=== PATIENT | female | born 1990 | race Caucasian/White ===

== ENCOUNTER 2021-01-10 23:02 | Emergency (ER) | payer BC ==
[~2021-01-10] VITALS: Ht 170.2 cm; Wt 72.6 kg
[2021-01-10 23:53] LABS: *URINE HCG, QUAL NEGATIVE (NEGATIVE)
[2021-01-11 00:19] LABS: BASOPHILS % (AUTO) 0.7 % (0.0-2.0); EOSINOPHILS # (AUTO) 0.1 K/uL (0.0-0.7); EOSINOPHILS % (AUTO) 1.6 % (0.0-7.0); HEMATOCRIT 39.6 % (31.2-41.9); HEMOGLOBIN 13.3 g/dL (10.9-14.3); LYMPHOCYTES # (AUTO) 2.1 K/uL (20.0-40.0); LYMPHOCYTES % (AUTO) 46.7 % (20.5-51.5); MEAN CORPUSCULAR HEMOGLOBIN 31.2 uug (24.7-32.8); MEAN CORPUSCULAR HGB CONC 34 g/dL (32.3-35.6); MEAN CORPUSCULAR VOLUME 93.1 fL (75.5-95.3); MONOCYTES # (AUTO) 0.4 K/uL (2.0-10.0); MONOCYTES % (AUTO) 8.7 % (0.0-11.0); NEUTROPHILS # (AUTO) 1.9 K/uL (1.8-8.9); NEUTROPHILS % (AUTO) 42.3 % (38.5-71.5); PLATELET COUNT (AUTO) 201 K/uL (179-408); RED BLOOD CELL COUNT(AUTO) 4.25 MIL/uL (3.63-4.92); WHITE BLOOD COUNT (AUTO) 4.4 K/uL (3.8-11.8)
[2021-01-11 00:40] LABS: BILIRUBIN,DIRECT 0.5 mg/dL (0.0-0.2); BILIRUBIN,TOTAL 0.3 mg/dL (0.2-1.0); CREATININE 0.8 mg/dL (0.6-1.3); TOTAL PROTEIN, SERUM 7.4 g/dL (6.4-8.2)
--- NOTE | 2021-01-11 02:21 | NUR ---
Patient discharged to home in stable condition. Written and verbal after care instructions given. Patient verbalizes understanding of instructions. Stressed follow up or return to ER for worsening s/s. Blood drawn for repeat troponin. ok to ar home after blood draw per Dr. Serrano.
[2021-01-11 02:22] VITALS: BP 110/62
== END 2021-01-11 02:22 | disposition home or self-care (01) ==
LOC: ER 23:05
DX: R07.9 Chest pain, unspecified (principal); R06.02 Shortness of breath; R00.1 Bradycardia, unspecified; J98.11 Atelectasis
CPT/HCPCS: 36415; 70030-TC; 71045; 84703; 85025; 85730; 93005

== ENCOUNTER 2021-07-13 23:25 | Emergency (ER) | payer BC ==
[~2021-07-13] VITALS: Ht 170.2 cm; Wt 73.0 kg
--- NOTE | 2021-07-13 23:38 | NUR ---
PT AMBULATED TO ER C/O RLQ ABDOMINAL PAIN STARTED THIS AM BUT GOT WORSE 30 MINS [employer]. A/O X4, NO SOB OR LABORED BREATHING, AFEBRILE. DR. AYALA AT BEDSIDE, MSE IN PROGRESS.
[2021-07-14] MEDS ORDERED: KETOROLAC TROMETHAMINE 15 MG INJ IVP ONE
[2021-07-14] MEDS ORDERED: IV NORMAL SALINE 1000 ML BAG IV ONE
[2021-07-14] MEDS ORDERED: HYDROMORPHONE 1 MG/1 ML DISP.SYRIN IV ONE
[2021-07-14 00:02] LABS: *BILIRUBIN,URIN NEGATIVE (NEGATIVE); *BLOOD, URINE 2+ (NEGATIVE); *COLOR,URINE YELLOW (YELLOW); *KETONES,URINE NEGATIVE (NEGATIVE); *UROBILINOGEN,URINE 0.2 E.U./dl (NORMAL); LEUKOCYTE ESTERASE ,URINE TRACE (NEGATIVE); NITRITE, URINE NEGATIVE (NEGATIVE); PH,URINE 6.5 (5.0-8.0); UGLUCOSE NEGATIVE (NEGATIVE)
[2021-07-14 00:04] LABS: HEMATOCRIT 39.2 % (31.2-41.9); MEAN CORPUSCULAR HEMOGLOBIN 31.4 uug (24.7-32.8); MEAN CORPUSCULAR VOLUME 93.3 fL (75.5-95.3); PLATELET COUNT (AUTO) 180 K/uL (179-408)
[2021-07-14] MEDS ORDERED: KETOROLAC TROMETHAMINE 15 MG INJ ONE (00:05)
[2021-07-14] MEDS ORDERED: HYDROMORPHONE 1 MG/1 ML DISP.SYRIN ONE (00:06)
[2021-07-14] MEDS ORDERED: ONDANSETRON 4 MG/2 ML VIAL ONE ×2 (00:06→00:47)
[2021-07-14 00:10] LABS: *CLARITY,URINE HAZY (CLEAR)
[2021-07-14 00:11] LABS: *URINE HCG, QUAL NEGATIVE (NEGATIVE); BACTERIA,URINE MODERATE /HPF (NONE SEEN); SQUAMOUS EPITHELIAL CELL,UR MODERATE /HPF (NONE SEEN)
[2021-07-14 00:12] LABS: CREATININE 0.9 mg/dL (0.6-1.3); POTASSIUM 3.5 mmol/L (3.5-5.1)
[2021-07-14 00:17] LABS: BILIRUBIN,DIRECT 0.1 mg/dL (0.0-0.2); BILIRUBIN,TOTAL 0.4 mg/dL (0.2-1.0); TOTAL PROTEIN, SERUM 7.5 g/dL (6.4-8.2)
[2021-07-14] MEDS ORDERED: ONDANSETRON 4 MG/2 ML VIAL IV ONE ×2 (00:45)
--- NOTE | 2021-07-14 00:53 | NUR ---
US (JUDITH) AT BEDSIDE.
[2021-07-14] MEDS ORDERED: ONDA4TAB5 PO (01:06)
[2021-07-14] MEDS ORDERED: HYDR-4209 PO (01:06)
[2021-07-14] MEDS ORDERED: diphenhydrAMINE 50 MG/1 ML VIAL ONE (01:27)
[2021-07-14] MEDS ORDERED: METOCLOPRAMIDE HCL 10 MG/2 ML VIAL ONE (01:27)
[2021-07-14] MEDS ORDERED: diphenhydrAMINE 50 MG/1 ML VIAL IV ONE (01:30)
[2021-07-14] MEDS ORDERED: METOCLOPRAMIDE HCL 10 MG/2 ML VIAL IV ONE (01:30)
--- NOTE | 2021-07-14 01:55 | NUR ---
Patient discharged to home in stable condition. A/O x4, denies any pain/discomfort upon discharge. No n/v. Written and verbal after care instructions given. Patient verbalizes understanding of instructions. Stressed follow up or return to ER for worsening s/s. Steady gait. Picked up by boyfriend.
[2021-07-14 02:09] VITALS: BP 120/61
[2021-07-14] MEDS ORDERED: CEPH500C2 PO (14:56)
[2021-07-14] MEDS ORDERED: IBUP-1955 PO (14:56)
[2021-07-14] MEDS ORDERED: TAMS-3 PO (14:56)
== END 2021-07-14 02:00 | disposition home or self-care (01) ==
LOC: ER 23:26
DX: N20.0 Calculus of kidney (principal); Z87.442 Personal history of urinary calculi
CPT/HCPCS: 36415; 76700; 80048; 80076; 81001; 83690; 84703; 85025; 87086; 96361; 96374; 96375; 96376; 99285; J1170; J1200; J1885; J2405 ×2; J2765; A4663; J7030

== ENCOUNTER 2021-07-14 13:18 | Emergency (ER) | payer BC ==
[~2021-07-14] VITALS: Ht 170.2 cm; Wt 73.9 kg
[~2021-07-14 13:18] MED LIST: HYDR-4209 PO; ONDA4TAB5 PO
[2021-07-14] MEDS ORDERED: IV NORMAL SALINE 1000 ML BAG IV ONE (13:30)
[2021-07-14] MEDS ORDERED: FENTANYL CITRATE 100 MCG/2 ML AMPUL IV ONE (13:30)
[2021-07-14] MEDS ORDERED: ACETAMINOPHEN 650 MG/20.3 ML LIQUID UDC PO ONE (13:30)
[2021-07-14] MEDS ORDERED: ONDANSETRON 4 MG/2 ML VIAL IV ONE ×2 (13:30→15:15)
[2021-07-14] MEDS ORDERED: ACETAMINOPHEN 325 MG TABLET ONE (13:52)
[2021-07-14] MEDS ORDERED: ONDANSETRON 4 MG/2 ML VIAL ONE ×2 (13:52→15:10)
[2021-07-14] MEDS ORDERED: FENTANYL CITRATE 100 MCG/2 ML AMPUL ONE (13:52)
--- NOTE | 2021-07-14 14:17 | NUR ---
Pt was here in ER for Kidney stones last night, d/c'd with RX. Pt returns, unable to keep fluids or meds down. Pain and nausea unbearable today. c/o right flank and ABD pain.
[2021-07-14] MEDS ORDERED: CEFTRIAXONE 1 G in IV DEXTROSE 5% 50 ML IV SCH (14:45)
[2021-07-14] MEDS ORDERED: KETOROLAC TROMETHAMINE 15 MG INJ IVP ONE (14:45)
--- NOTE | 2021-07-14 14:55 | NUR ---
Pt pain increasing again, nausea still present. MD aware.
[2021-07-14] MEDS ORDERED: CEPH500C2 PO (14:56)
[2021-07-14] MEDS ORDERED: IBUP-1955 PO (14:56)
[2021-07-14] MEDS ORDERED: TAMS-3 PO (14:56)
[2021-07-14] MEDS ORDERED: KETOROLAC TROMETHAMINE 15 MG INJ ONE (14:59)
[2021-07-14] MEDS ORDERED: CEFTRIAXONE /D5W 50ML IVPB **ER PYXIS IV ONE (15:00)
--- NOTE | 2021-07-14 16:00 | NUR ---
Pt nausea resolved, pain 3-4/10. Fluid challenge, successful
--- NOTE | 2021-07-14 17:15 | NUR ---
Removed IV intact, site benign, bandaged. Gave pt RX and d/c instructions, pt verbalized understanding.
[2021-07-14 17:18] VITALS: BP 108/55
== END 2021-07-14 17:21 | disposition home or self-care (01) ==
LOC: ER 13:18
DX: N13.2 Hydronephrosis with renal and ureteral calculous obstruction (principal); R11.2 Nausea with vomiting, unspecified; N39.0 Urinary tract infection, site not specified; K44.9 Diaphragmatic hernia without obstruction or gangrene
CPT/HCPCS: 74176; 96361; 96365; 96375; 96376; 99284; J0696; J1885; J2405 ×2; J3010; J7030

== ENCOUNTER 2021-07-18 16:09 | Emergency (ER) | payer BC ==
[~2021-07-18] VITALS: Ht 170.2 cm; Wt 72.6 kg
[~2021-07-18 16:09] MED LIST changes: +CEPH500C2 PO; +IBUP-1955 PO; +TAMS-3 PO
[2021-07-18] MEDS ORDERED: BUPR100T5 PO (16:28)
[2021-07-18] MEDS ORDERED: FLUO10CA26 PO (16:28)
[2021-07-18] MEDS ORDERED: LAMO25TA5 PO (16:28)
--- NOTE | 2021-07-18 16:30 | NUR ---
Heart rated noted at 61 bpm on ECG
--- NOTE | 2021-07-18 16:33 | NUR ---
at bedside for assessment
[2021-07-18 17:01] LABS: HEMATOCRIT 38.9 % (31.2-41.9); MEAN CORPUSCULAR HEMOGLOBIN 31.3 uug (24.7-32.8); MEAN CORPUSCULAR VOLUME 93.3 fL (75.5-95.3); PLATELET COUNT (AUTO) 210 K/uL (179-408)
[2021-07-18 17:03] LABS: POTASSIUM 3.6 mmol/L (3.5-5.1)
[2021-07-18 17:04] LABS: MAGNESIUM 1.9 mg/dL (1.8-2.4)
[2021-07-18 17:19] LABS: THYROID STIMULATING HORMONE 1.036 mIU/mL (0.358-3.740)
--- NOTE | 2021-07-18 17:34 | NUR ---
Patient discharged to home in stable condition. No signs of acute distress noted, able to amulate with steady gait. Written and verbal after care instructions given. Patient verbalizes understanding of instructions. Stressed follow up or return to ER for worsening s/s.
[2021-07-18 17:35] VITALS: BP 122/70
== END 2021-07-18 17:36 | disposition home or self-care (01) ==
LOC: ER 16:10
DX: R00.2 Palpitations (principal); Z87.442 Personal history of urinary calculi; F32.9 Major depressive disorder, single episode, unspecified; F41.9 Anxiety disorder, unspecified; Z79.899 Other long term (current) drug therapy
CPT/HCPCS: 36415; 83735; 84443; 85025; 93005; A4663